=== PATIENT | female | born 1965 | race African-American/Black ===

== ENCOUNTER → 2018-04-12 | Outpatient (CLI) | payer OTHER ==
[2016-04-23 13:40] VITALS: BP 151/98
[~2018-04-12] MED LIST: PRED20TA PO; SULF1TAB24 PO
--- NOTE | 2018-04-12 09:33 | RAD ---
MRI of the brain without contrast 04/12/2018 Clinical History: Right-sided facial droop. Slurred speech. Technique: Unenhanced T1-weighted sagittal and axial, T2-weighted axial and coronal and FLAIR, gradient echo and diffusion-weighted axial images of the brain were obtained. Findings: No previous imaging studies are available for comparison. There is mild generalized parenchymal atrophy. Patchy and a few small scattered areas of increased signal intensity are seen within the periventricular and subcortical white matter of both cerebral hemispheres on the FLAIR and T2-weighted images consistent most likely with areas of minimal small vessel ischemic disease. No acute parenchymal abnormality is seen. No extra-axial fluid collection is seen. There is no MRI evidence of acute ischemia/infarction. Mild mucosal thickening is seen scattered throughout the paranasal sinuses. There are minimal bilateral mastoid effusions. Normal flow voids are seen within the major vascular structures surrounding the brain parenchyma. Impression: No acute parenchymal abnormality is seen. Electronically signed by: Fred Cruz MD (04/12/2018 9:30 AM) [id number]
== END | disposition home or self-care (01) ==
LOC: MRI 07:46
PROVIDERS: ATTEND Family Medicine
DX: H74.8X3 Other specified disorders of middle ear and mastoid, bilateral (principal); I10 Essential (primary) hypertension; I48.91 Unspecified atrial fibrillation; Z86.2 Personal history of diseases of the blood and blood-forming organs and certain disorders involving the immune mechanism; Z90.710 Acquired absence of both cervix and uterus
CPT/HCPCS: 70551

== ENCOUNTER → 2018-07-07 | Outpatient (CLI) | payer OTHER ==
[2016-04-23 13:40] VITALS: BP 151/98
--- NOTE | 2018-07-09 10:35 | RAD ---
DATE: 07/07/2018 4:00 PM EXAM: DIGITAL SCREEN BILAT W/CAD HISTORY: routine screening evaluation. COMPARISON: None-baseline Bilateral full field craniocaudal and mediolateral oblique images were obtained using digital technique. This study was interpreted with the benefit of Computerized Aided Detection (CAD ). Breast Density: The breast parenchyma is heterogeneously dense, which could reduce sensitivity of mammography. Breast parenchyma level C. FINDINGS: Benign calcifications are present. No suspicious masses, microcalcifications or architectural distortion is present to suggest malignancy in either breast. The visualized axillae are unremarkable. IMPRESSION: No mammographic evidence of malignancy. BI-RADS CATEGORY: 2 BENIGN FINDING(S) RECOMMENDED FOLLOW-UP: 12M 12 MONTH FOLLOW-UP Annual screening mammography is recommended, unless clinically indicated sooner based on symptoms or change in physical exam. PQRS compliance statement: Patient information was entered into a reminder system with a target due date 07/07/2019 for the next mammogram. Mammography is a sensitive method for finding small breast cancers, but it does not detect them all and is not a substitute for careful clinical examination. A negative mammogram does not negate a clinically suspicious finding and should not result in delay in biopsying a clinically suspicious abnormality. "Our facility is accredited by the [employer] Mammography Program." MTDD
== END | disposition home or self-care (01) ==
LOC: MAMMO 13:48
PROVIDERS: ATTEND Family Medicine
DX: Z12.31 Encounter for screening mammogram for malignant neoplasm of breast (principal)
CPT/HCPCS: 77067

== ENCOUNTER → 2018-08-04 | Day surgery (SDC) | payer MEDICAID, OTHER ==
[~2018-08-04] MED LIST changes: +AMLO10TA8 PO; +ASPI-630 PO; +CYCL5TAB PO; +HYDR-2759 PO; +HYDROmorphone 2 MG/ML VIAL IV PRN; +IV RINGERS,LACTATED 1000ML 1,000 ML IV SCH; +LIDOCAINE 1% PF 2 ML VIAL. ID PRN; +LURA120T PO; +METO50TA6 PO; +MORPHINE SULFATE 4 MG/ML VIAL. IV PRN; +ONDANSETRON PF 4 MG/2 ML VIAL. IV PRN; +PROCHLORPERAZINE 10 MG/2 ML VIAL. IV PRN; +PROPOFOL 20 ML IV ONE; +TOPI100C5 PO; +fentaNYL PF VIAL 100 MCG/2 ML VIAL IV PRN
--- NOTE | 2018-08-04 09:32 | CONS ---
DATE OF CONSULTATION: REFERRING PHYSICIAN: Dr. Rohan Teresa. REASON FOR CONSULTATION: Colorectal screening. HISTORY OF PRESENT ILLNESS: A 53-year-old -Iranian female with past medical history significant for hypertension as well as depression, anxiety, arthritis, who is status post hysterectomy, is seen for a screening colon exam. Bowel habits are regular without diarrhea or constipation. There has been no melena or hematochezia. Weight and appetite have been stable. She has no additional complaints. PAST MEDICAL HISTORY: Anxiety, arthritis, depression, hypertension, status post hysterectomy and hernia repair. ALLERGIES: None. MEDICATIONS: Include amlodipine, aspirin, cyclobenzaprine, hydrocodone, Latuda, metoprolol, ____. SOCIAL HISTORY: She is nonsmoker, nondrinker. FAMILY HISTORY: Significant for diabetes with her mother. REVIEW OF SYSTEMS: Per records. PHYSICAL EXAMINATION: GENERAL: Reveals a well-nourished, well-developed -Iranian female who is alert, cooperative, in no acute distress. VITAL SIGNS: Temperature is 97.3, pulse 81, respiration is 20. HEENT: Normocephalic, atraumatic head. Pupils and extraocular movements are not tested. Sclerae anicteric. NECK: Supple. LUNGS: Clear. CARDIOVASCULAR: Reveals S1, S2 without S3, S4 or appreciable murmur. ABDOMEN: Reveals soft abdomen. Normoactive bowel sounds without appreciable hepatosplenomegaly. EXTREMITIES: Reveals no cyanosis, clubbing or edema. IMPRESSION AND PLAN: Colorectal screening is warranted at this time. Risks and benefits of procedure including risk of hemorrhage and perforation have been discussed. The patient is willing to proceed. EARL BROOKS MD DR: ANA MARIA/haylee JOB#: [id number] / [id number] ROHAN Carroll MD
[2018-08-04 09:55] VITALS: BP 114/57
== END | disposition home or self-care (01) ==
LOC: SURG 08:20
PROVIDERS: ATTEND Internal Medicine Gastroenterology
DX: Z12.11 Encounter for screening for malignant neoplasm of colon (principal); K57.30 Diverticulosis of large intestine without perforation or abscess without bleeding; K64.0 First degree hemorrhoids; I10 Essential (primary) hypertension; F41.9 Anxiety disorder, unspecified; F32.9 Major depressive disorder, single episode, unspecified; M19.90 Unspecified osteoarthritis, unspecified site; Z90.710 Acquired absence of both cervix and uterus; Z98.890 Other specified postprocedural states; Z79.82 Long term (current) use of aspirin; Z79.899 Other long term (current) drug therapy; Z83.3 Family history of diabetes mellitus
CPT/HCPCS: 45378; J2704

== ENCOUNTER → 2018-09-29 | Outpatient (CLI) | payer OTHER ==
[2018-08-04 09:55] VITALS: BP 114/57
[~2018-09-29] MED LIST changes: -HYDROmorphone 2 MG/ML VIAL IV PRN; -IV RINGERS,LACTATED 1000ML 1,000 ML IV SCH; -LIDOCAINE 1% PF 2 ML VIAL. ID PRN; -MORPHINE SULFATE 4 MG/ML VIAL. IV PRN; -ONDANSETRON PF 4 MG/2 ML VIAL. IV PRN; -PROCHLORPERAZINE 10 MG/2 ML VIAL. IV PRN; -PROPOFOL 20 ML IV ONE; -fentaNYL PF VIAL 100 MCG/2 ML VIAL IV PRN
--- NOTE | 2018-09-29 14:40 | RAD ---
EXAM: Right hand, 3 views. HISTORY: Arthritis. COMPARISON: None. FINDINGS: 3 views of the right hand are obtained. There is no fracture, dislocation or subluxation. The alignment and joint spaces are unremarkable. IMPRESSION: No acute osseous finding. Electronically signed by: Caro Mohr MD (09/29/2018 2:37 PM) [id number]
--- NOTE | 2018-09-29 14:41 | RAD ---
EXAM: Right elbow, 3 views. HISTORY: Arthritis. COMPARISON: None. FINDINGS: 3 views of the right elbow are obtained. There is no fracture, dislocation or subluxation. There is no elbow effusion. IMPRESSION: No acute osseous finding. Electronically signed by: Caro Mohr MD (09/29/2018 2:38 PM) [id number]
--- NOTE | 2018-09-29 14:41 | RAD ---
EXAM: Right hip, 2 views. HISTORY: Arthritis. COMPARISON: None. FINDINGS: 2 views of the right hip are obtained. There is no fracture, dislocation or subluxation. The femoral head is normal in configuration and seated appropriately. There is suspected osteitis pubis. IMPRESSION: 1. No acute osseous finding. 2. Suspected osteitis pubis Electronically signed by: Caro Mohr MD (09/29/2018 2:38 PM) [id number]
== END | disposition home or self-care (01) ==
LOC: RAD 13:07
PROVIDERS: ATTEND Nurse Practitioner Adult Health
DX: M79.641 Pain in right hand (principal); M25.551 Pain in right hip; M25.521 Pain in right elbow; G89.29 Other chronic pain; M19.90 Unspecified osteoarthritis, unspecified site
CPT/HCPCS: 73080; 73130; 73502

== ENCOUNTER → 2019-04-28 | Outpatient (CLI) | payer OTHER ==
[2018-08-04 09:55] VITALS: BP 114/57
--- NOTE | 2019-04-28 14:35 | RAD ---
EXAM: Bilateral hips and pelvis, 3 views. HISTORY: Pain. COMPARISON: None. FINDINGS: A frontal view of the pelvis and frog-leg views of both hips are obtained. There is no fracture, dislocation or subluxation. There is a small right os acetabulum or superior lateral acetabular osteophyte. IMPRESSION: 1. No acute osseous finding. 2. Small right os acetabulum or superior lateral acetabular spurring. Electronically signed by: Caro Mohr MD (04/28/2019 2:32 PM) [place] [id number]
== END | disposition home or self-care (01) ==
LOC: RAD 13:34
PROVIDERS: ATTEND Nurse Practitioner Gerontology
DX: M25.751 Osteophyte, right hip (principal); M25.552 Pain in left hip
CPT/HCPCS: 73521

== ENCOUNTER 2019-07-22 09:44 | Emergency (ER) | payer OTHER ==
[~2019-07-22] VITALS: Ht 170.2 cm; Wt 127.0 kg
[2019-07-22 10:15] VITALS: BP 161/96
[2019-07-22] MEDS ORDERED: ALBUTEROL SULFATE 2.5 MG/3 ML NEBU. NEB ONE (10:15)
--- NOTE | 2019-07-22 10:32 | PHYS DOC ---
Past Medical History Past Medical History: Anemia, Anxiety, Hypertension (ANNE FERNANDO APRN) Past Surgical History: Hysterectomy, Other Additional Past Surgical Histo: hernia (ANNE FERNANDO APRN) Alcohol Use: None Drug Use: None (ANNE FERNANDO APRN) Adult General Chief Complaint Chief Complaint: FLU SYMPTOM HPI HPI Patient is a 54 year old AA female who presents to the emergency department with complaints of a cough, shortness of breath, chest congestion, nasal congestion, fatigue, body aches, and pain in her ribs with coughing for the last week and a half. She denies any nausea, or vomiting. Patient states she has had diarrhea anytime she eats anything it seems to go right through her. She denies any blood in her stools, abdominal pain, back pain, or fever. Patient states she is only been able to cough up a small amount of mucus. She currently rates her pain as 7 out of 10 on the pain scale, she denies any alleviating factors. All other ROS is neg unless otherwise noted in HPI. (ANNE FERNANDO APRN) Review of Systems Review of Systems See Above (ANNE FERNANDO APRN) Current Medications Current Medications Current Medications Medications (Trade) Dose Ordered Sig/Pam Start Time Stop Time Status Last Admin Dose Admin Albuterol Sulfate (Ventolin Neb Soln) 2.5 mg 1X ONCE 07/22/19 10:15 07/22/19 10:16 DC 07/22/19 10:18 2.5 MG (FRANK LACKEY DO) Allergies Allergies Allergies Coded Allergies Type Severity Reaction Last Updated Verified No Known Drug Allergies 08/04/18 No (FRANK LACKEY DO) Physical Exam Physical Exam See Above Constitutional: Well developed, well nourished, no acute distress, non-toxic appearance. [] HENT: Normocephalic, atraumatic, left TM normal, right TM erythemic with mild bulging, no perforation, posterior pharynx congested, oropharynx moist, no oral exudates, nose congested Eyes: PERRLA, EOMI, conjunctiva normal, no discharge. [] Neck: Normal range of motion, no tenderness, supple, no stridor. [] Cardiovascular:Heart rate regular rhythm, no murmur [] Lungs & Thorax: Bilateral breath sounds clear to auscultation, diminished in bilateral posterior lower lobes, Respirations even and unlabored, no retractions, no respiratory distress [] Skin: Warm, dry, no erythema, no rash. [] Back: No tenderness Extremities: No cyanosis, ROM intact, no edema. [] Neurologic: Alert and oriented X 3, no focal deficits noted. [] Psychologic: Affect normal, judgement normal, mood normal. [] (ANNE FERNANDO APRN) Current Patient Data Vital Signs Vital Signs Date Time Temp Pulse Resp B/P (MAP) Pulse Ox O2 Delivery O2 Flow Rate FiO2 07/22/19 10:19 97 Room Air 07/22/19 10:15 98.2 74 16 161/96 (117) 98.2 (FRANK LACKEY DO) EKG EKG [] (ANNE FERNANDO APRN) Radiology/Procedures Radiology/Procedures Patient was given an albuterol breathing treatment in the emergency department, following breathing treatment lung sounds are clear in all yu. Patient reported some improvement in chest congestion.[] PROCEDURE: CHEST PA & LATERAL AP and Lateral Views of the Chest 07/22/2019 10:06 AM Indication: Cough x10 days Comparison: None Findings: Decreased inspiratory volumes noted. There is no focal consolidation or infiltrate identified. The cardiomediastinal silhouette is within normal limits. There is no evidence of pneumothorax or pleural effusion. No acute osseous abnormalities are identified. Impression: Mildly low lung volumes. Otherwise no evidence of acute cardiopulmonary process. (ANNE FERNANDO APRN) Course & Med Decision Making Course & Med Decision Making Pertinent Labs and Imaging studies reviewed. (See chart for details) [] (ANNE FERNANDO APRN) Dragon Disclaimer Dragon Disclaimer This electronic medical record was generated, in whole or in part, using a voice recognition dictation system. (ANNE FERNANDO APRN) Departure Departure Impression: Primary Impression: Bronchitis, acute Additional Impression: Right nonsuppurative otitis media Disposition: 01 HOME, SELF-CARE Condition: STABLE Referrals: FRANK RDZ MD (PCP) Patient Instructions: Acute Bronchitis, [id number] Additional Instructions: Fill prescription(s) and use as directed. Recommend use of a Cool mist humidifier in room at bedtime. Alternate Tylenol or ibuprofen as needed for pain/fever. Increase clear fluids. Avoid airway triggers such as smoke, fragrance, dust, and pollen. Follow-up with your primary care doctor in 1-2 days, return to the ER if symptoms worsen. Scripts Benzonatate (TESSALON PERLE) 100 Mg Capsule 1 CAP PO TID PRN for COUGH for 7 Days, #21 CAP 0 Refills Prov: ANNE FERNANDO APRN 07/22/19 Azithromycin (AZITHROMYCIN TABLET) 250 Mg Tablet 1 PKG PO UD for 5 Days, #6 TAB 0 Refills 2 the first day followed by 1 for days 2-5 Prov: ANNE FERNANDO APRN 07/22/19 Attending Signature Attending Signature I have reviewed the PA/OUTSIDE DELIVERER's note and plan of care. I was available for consultation as needed during the patient's visit in the emergency department. I agree with the clinical impression, plan, and disposition. (FRANK LACKEY DO) Problem Qualifiers Primary Impression: Bronchitis, acute Bronchitis organism: unspecified organism Qualified Codes: J20.9 - Acute bronchitis, unspecified ANNE FERNANDO APRN Jul 22, 2019 10:32 FRANK LACKEY DO Jul 27, 2019 21:29
--- NOTE | 2019-07-22 10:46 | RAD ---
AP and Lateral Views of the Chest 07/22/2019 10:06 AM Indication: Cough x10 days Comparison: None Findings: Decreased inspiratory volumes noted. There is no focal consolidation or infiltrate identified. The cardiomediastinal silhouette is within normal limits. There is no evidence of pneumothorax or pleural effusion. No acute osseous abnormalities are identified. Impression: Mildly low lung volumes. Otherwise no evidence of acute cardiopulmonary process. Electronically signed by: Cb Galvan MD (07/22/2019 10:43 AM) [id number]
[2019-07-22] MEDS ORDERED: AZIT250T6 PO (10:58)
[2019-07-22] MEDS ORDERED: BENZ100C PO (10:58)
== END 2019-07-22 11:07 | disposition home or self-care (01) ==
LOC: ER 09:44
DX: J20.9 Acute bronchitis, unspecified (principal); H65.91 Unspecified nonsuppurative otitis media, right ear; I10 Essential (primary) hypertension
CPT/HCPCS: 71046; 94640; 99284; J7613

== ENCOUNTER 2020-01-23 14:52 | Emergency (ER) | payer OTHER ==
[~2020-01-23] VITALS: Ht 170.2 cm; Wt 122.7 kg
[~2020-01-23 14:52] MED LIST changes: +AZIT250T6 PO; +BENZ100C PO
[2020-01-23] MEDS ORDERED: HYDROcodone/APAP 5/325MG 1 TAB TABLET PO ONE (17:00)
[2020-01-23] MEDS ORDERED: ASPIRIN 325 MG TABLET PO ONE (17:00)
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
[2020-01-23 17:20] VITALS: BP 160/97
[2020-01-23 17:27] LABS: CALCIUM 8.6 mg/dL (8.5-10.1); GFR 70.5; POTASSIUM 4.1 mmol/L (3.5-5.1)
[2020-01-23 17:32] LABS: ALBUMIN 3.4 g/dL (3.4-5.0); ALBUMIN/GLOBULIN RATIO 0.8 (1.0-1.7); TOTAL BILIRUBIN 0.2 mg/dL (0.2-1.0); TOTAL PROTEIN 7.5 g/dL (6.4-8.2)
[2020-01-23 17:35] LABS: BASO % 1 % (0-3); EOS # 0.3 x10^3/uL (0.0-0.7); EOS % 4 % (0-3); HEMATOCRIT 41.9 % (36.0-47.0); HEMOGLOBIN 14.3 g/dL (12.0-15.5); LYMPH # 1.7 x10^3/uL (1.0-4.8); LYMPH % 28 % (24-48); MEAN CORPUSCULAR HEMOGLOBIN 31 pg (25-35); MEAN CORPUSCULAR HGB CONC 34 g/dL (31-37); MEAN CORPUSCULAR VOLUME 91 fL (79-100); MONO # 0.4 x10^3/uL (0.0-1.1); MONO % 7 % (0-9); NEUT # 3.6 x10^3/uL (1.8-7.7); NEUT % 61 % (31-73); PLATELET COUNT 311 x10^3/uL (140-400); RED BLOOD COUNT 4.59 x10^6/uL (3.50-5.40); RED CELL DISTRIBUTION WIDTH 15.5 % (11.5-14.5)
--- NOTE | 2020-01-23 17:59 | RAD ---
PA and lateral chest. HISTORY: Midsternal chest pain, short of air PA and lateral views were taken of the chest. Lungs are clear. Heart is normal in size. There is no pleural effusion. IMPRESSION: 1. No acute chest disease. Electronically signed by: Bebeto Rudolph MD (01/23/2020 5:56 PM) [facility]
[2020-01-23] MEDS ORDERED: HYDR-3164 PO (18:06)
[2020-01-23] MEDS ORDERED: ORPH100T PO (18:06)
[2020-01-23 18:26] LABS: BILIRUBIN,URINE NEGATIVE (NEG); CLARITY,URINE CLEAR; COLOR,URINE YELLOW; NITRITE,URINE NEGATIVE (NEG); PH,URINE 5.5 (<5.0-8.0); PROTEIN,URINE NEGATIVE (NEG-TRACE); UROBILINOGEN,URINE 0.2 mg/dL (0.2 mg/dL)
[2020-01-23 18:32] LABS: BARBITURATES NEG (NEG); BENZODIAZEPINES NEG (NEG); CANNABINOIDS NEG (NEG); COCAINE NEG (NEG); METHADONE NEG (NEG); OPIATES POS (NEG); PHENCYCLIDINE NEG (NEG); SQUAMOUS EPITHELIAL CELL,UR MOD /LPF
[2020-01-23 18:33] LABS: BACTERIA,URINE MANY /HPF (0-FEW)
[2020-01-23 18:57] LABS: AMPHETAMINE/METHAMPHETAMINE POS (NEG)
--- NOTE | 2020-01-24 08:47 | EKG ---
[facility] [address] [place] [address] Test Date: 2020-01-23 Test Time: 17:38:21 Pat Name: SANJIV JJ Department: Room: Gender: F Garbage Truck Helper: : 1965 Requested By: DANITA FOFANA Order Number: [id number] Reading MD: Measurements Intervals [place] Rate: 89 P: 51 [place]: 154 QRS: 8 QRSD: 86 T: 32 QT: 366 QTc: 446 Interpretive Statements SINUS RHYTHM LEFT ATRIAL ABNORMALITY QRS(T) CONTOUR ABNORMALITY CONSIDER ANTEROSEPTAL MYOCARDIAL DAMAGE T ABNORMALITY IN ANTEROLATERAL LEADS ABNORMAL ECG RI6.02 No previous ECG available for comparison
== END 2020-01-23 18:35 | disposition home or self-care (01) ==
LOC: ER 14:52
DX: R07.2 Precordial pain (principal); G89.11 Acute pain due to trauma; I10 Essential (primary) hypertension; V49.49XA Driver injured in collision with other motor vehicles in traffic accident, initial encounter; Y93.89 Activity, other specified; Y92.488 Other paved roadways as the place of occurrence of the external cause; Y99.8 Other external cause status
CPT/HCPCS: 36415; 71046; 80053; 80307; 81001; 83690; 83880; 84484; 85025; 85610; 87086; 93005; 99285-25

== ENCOUNTER → 2020-09-12 | Outpatient (CLI) | payer OTHER ==
[~2020-09-12] MED LIST changes: +AMLO-187 PO; -AMLO10TA8 PO; +HYDR-3164 PO; +ORPH100T PO
--- NOTE | 2020-09-13 10:15 | RAD ---
DATE: 09/12/2020 2:23 PM EXAM: DIGITAL SCREEN BILAT W/CAD HISTORY: Screening COMPARISON: 07/07/2018 Bilateral full field craniocaudal and mediolateral oblique images were obtained using digital technique. This study was interpreted with the benefit of Computerized Aided Detection (CAD). FINDINGS: Breast Density: SCATTERED The breast parenchyma shows scattered fibroglandular densities. Breast parenchyma level B No suspicious masses, microcalcifications or architectural distortion is present to suggest malignancy in either breast. The visualized axillae are unremarkable. IMPRESSION: No mammographic evidence of malignancy. BI-RADS CATEGORY: 1 NEGATIVE RECOMMENDED FOLLOW-UP: 12M 12 MONTH FOLLOW-UP Annual screening mammography is recommended, unless clinically indicated sooner based on symptoms or change in physical exam. PQRS compliance statement: Patient information was entered into a reminder system with a target due date for the next mammogram. Mammography is a sensitive method for finding small breast cancers, but it does not detect them all and is not a substitute for careful clinical examination. A negative mammogram does not negate a clinically suspicious finding and should not result in delay in biopsying a clinically suspicious abnormality. "Our facility is accredited by the [employer] Mammography Program."
== END ==
LOC: MAMMO 13:35
PROVIDERS: ATTEND Family Medicine
DX: Z12.31 Encounter for screening mammogram for malignant neoplasm of breast (principal)
CPT/HCPCS: 77067

== ENCOUNTER 2021-10-02 14:40 | Emergency (ER) | payer MEDICARE ==
[~2021-10-02] VITALS: Ht 170.2 cm; Wt 133.6 kg
[2021-10-02] MEDS ORDERED: OXYMETAZOLINE 0.05% NASAL SPRAY 30ML BOTTLE. NS ONE ×2 (15:00→19:45)
[2021-10-02] MEDS ORDERED: TRANEXAMIC ACID 1,000 MG/10 ML VIAL. TOP ONE ×2 (16:00→18:30)
[2021-10-02] MEDS ORDERED: HYDROcodone/APAP 5/325MG 1 TAB TABLET PO ONE (17:30)
--- NOTE | 2021-10-02 18:05 | PHYS DOC ---
Past Medical History Past Medical History: Anemia, Anxiety, Hypertension Past Surgical History: Hysterectomy, Other Additional Past Surgical Histo: hernia Smoking Status: Never Smoker Alcohol Use: None Drug Use: None General Adult EDM: Chief Complaint: NOSEBLEED HPI: HPI: Patient is a 56 year old female with history of hypertension, anemia, anxiety presenting to the ED today complaining of nosebleeding that began at 2 PM. Patient denies any triggers to her nosebleeding. She states she attempted to stop it with no success. She also states earlier this morning she had an episode of nosebleeding that she was able to stop herself. Patient states she used to be on blood pressure medicine but stopped taking it a while ago because she did not think she needed it. Review of Systems: Review of Systems: Constitutional: Denies fever or chills. [] Eyes: Denies change in visual acuity. [] HENT: Reports nose bleeding. Denies nasal congestion or sore throat. [] Respiratory: Denies cough or shortness of breath. [] Cardiovascular: Denies chest pain or edema. [] GI: Denies abdominal pain, nausea, vomiting, bloody stools or diarrhea. [] : Denies dysuria. [] Musculoskeletal: Denies back pain or joint pain. [] Integument: Denies rash. [] Neurologic: Denies headache, focal weakness or sensory changes. [] Psychiatric: Denies depression or anxiety. [] Heart Score: C/O Chest Pain: N/A Risk Factors: Risk Factors: DM, Current or recent (<one month) smoker, HTN, HLP, family histo ry of CAD, obesity. Risk Scores: Score 0 - 3: 2.5% MACE over next 6 weeks - Discharge Home Score 4 - 6: 20.3% MACE over next 6 weeks - Admit for Clinical Observation Score 7 - 10: 72.7% MACE over next 6 weeks - Early Invasive Strategies Current Medications: Current Medications Medications (Trade) Dose Ordered Sig/Pam Start Time Stop Time Status Last Admin Dose Admin Acetaminophen/ Hydrocodone Bitart (Lortab 5/325) 2 tab 1X ONCE 10/02/21 17:30 10/02/21 17:31 DC 10/02/21 17:26 2 TAB Oxymetazoline HCl (Afrin) 2 spray 1X ONCE 10/02/21 15:00 10/02/21 15:01 DC 10/02/21 15:09 2 SPRAY Tranexamic Acid (Cyklokapron) 1,000 mg 1X ONCE 10/02/21 16:00 10/02/21 16:01 DC 10/02/21 15:55 1,000 MG Allergies: Allergies: Allergies Coded Allergies Type Severity Reaction Last Updated Verified No Known Drug Allergies 08/04/18 No Physical Exam: PE: Constitutional: Well developed, well nourished, no acute distress, non-toxic appearance. [] HENT: Normocephalic, atraumatic, bilateral external ears normal, oropharynx moist, no oral exudates, Right nasal cavity mild amount of blood actively bleeding. Trace amount of blood coming from the left nasal cavity. Eyes: PERRLA, EOMI, conjunctiva normal, no discharge. [] Neck: Normal range of motion, no tenderness, supple, no stridor. [] Cardiovascular:Heart rate regular rhythm, no murmur [] Lungs & Thorax: Bilateral breath sounds clear to auscultation [] Abdomen: Bowel sounds normal, soft, no tenderness, no masses, no pulsatile masses. [] Skin: Warm, dry, no erythema, no rash. [] Back: No tenderness, no CVA tenderness. [] Extremities: No tenderness, no cyanosis, no clubbing, ROM intact, no edema. [] Neurologic: Alert and oriented X 3, normal motor function, normal sensory function, no focal deficits noted. [] Psychologic: Affect normal, judgement normal, mood normal. [] Current Patient Data: Vital Signs: Vital Signs Date Time Temp Pulse Resp B/P (MAP) Pulse Ox O2 Delivery O2 Flow Rate FiO2 10/02/21 17:26 22 99 10/02/21 16:14 89 10/02/21 14:50 97.7 178/93 (121) Room Air 97.7 EKG: EKG: [] Radiology/Procedures: Radiology/Procedures: [] Course & Med Decision Making: Course & Med Decision Making Pertinent Labs and Imaging studies reviewed. (See chart for details) This a 56-year-old female patient presented to the ED today with nosebleeding that began today at 2 PM. BP on arrival was 178/93 with a heart rate of 94. Patient states she has hypertension and stopped taking her medicines a while back Pressure was applied to the nose, bleeding continued. Afrin was used to try and stop the bleeding, left nasal cavity stopped, right nasal cavity still bleeding. TXA was used on gauze. Bleeding had started to slow down. When gauze was removed, patient started to rebleed. Rhino Rocket was used in the right nasal cavity, bleeding slowed down tremendously she was still passing blood clots in her mouth I spoke to Dr.Ellis RUSSELL at [facility], he requested we give patient morphine and drop her blood pressure below 140/60's and this should stop the nosebleed. Patient was given several doses of morphine. Left nasal cavity started to bleed again, left nasal cavity was packed with gauze soaked in TXA. She refused packing to this nose. Blood pressure came down to 115/68, both nasal cavities stopped bleeding. She was discharged to home, she will call Dr. Santino RUSSELL tomorrow and follow up Dragon Disclaimer: Bharat Disclaimer: This electronic medical record was generated, in whole or in part, using a voice recognition dictation system. Departure Departure Impression: Primary Impression: Epistaxis Additional Impression: Hypertension Qualified Codes: I10 - Essential (primary) hypertension Disposition: HOME / SELF CARE / HOMELESS Condition: STABLE Referrals: FRANK RDZ MD (PCP) [place] [address] [phone] Patient Instructions: Nosebleed, [id number] Additional Instructions: Please contact the ENT specialist provided on this paperwork tomorrow morning and set up a follow-up appointment in 2 to 3 days to remove the nasal packing. Dr. Santino RUSSELL [address] [place] [address] [phone] Please contact your primary care doctor tomorrow to be put back on your blood pressure medicine Scripts Hydrocodone Bit/Acetaminophen (HYDROCODONE-APAP 5-325 ) 1 Tab Tablet 1 TAB PO PRN Q6HRS PRN for PAIN, #14 TAB 0 Refills Prov: TAMIKATAYCAPO APRN 10/02/21 CAPO HUYNH APRN Oct 02, 2021 18:05
[2021-10-02] MEDS ORDERED: HYDR-2761 PO (18:10)
[2021-10-02] MEDS ORDERED: MORPHINE SULFATE 4 MG/ML INJ. IVP ONE (18:30)
[2021-10-02 18:42] LABS: BASO % 1 % (0-3); EOS # 0.1 x10^3/uL (0.0-0.7); EOS % 2 % (0-3); HEMATOCRIT 43.1 % (36.0-47.0); HEMOGLOBIN 13.9 g/dL (12.0-15.5); LYMPH # 2.4 x10^3/uL (1.0-4.8); LYMPH % 39 % (24-48); MEAN CORPUSCULAR HEMOGLOBIN 29 pg (25-35); MEAN CORPUSCULAR HGB CONC 32 g/dL (31-37); MEAN CORPUSCULAR VOLUME 90 fL (79-100); MONO # 0.5 x10^3/uL (0.0-1.1); MONO % 8 % (0-9); NEUT # 3.2 x10^3/uL (1.8-7.7); NEUT % 51 % (31-73); PLATELET COUNT 297 x10^3/uL (140-400); RED CELL DISTRIBUTION WIDTH 15.6 % (11.5-14.5); WHITE BLOOD COUNT 6.3 x10^3/uL (4.0-11.0)
[2021-10-02 19:26] LABS: PROTHROMBIN TIME PATIENT 12.6 SEC (11.7-14.0)
[2021-10-02] MEDS ORDERED: MORPHINE SULFATE 2 MG/ML INJ. IVP ONE (19:30)
[2021-10-02 20:51] VITALS: BP 115/68
== END 2021-10-02 21:05 | disposition home or self-care (01) ==
LOC: ER 14:40
DX: R04.0 Epistaxis (principal); I10 Essential (primary) hypertension
CPT/HCPCS: 36415; 85025; 85610; 85730; 96374; 96376; 99285; J2270; J3490